=== PATIENT | female | born 1980 | race Two or more races ===

== ENCOUNTER 2017-06-30 13:55 | Emergency (ER) | payer MEDICAID ==
[~2017-06-30] VITALS: Ht 160 cm; Wt 68.0 kg
--- NOTE | 2017-06-30 14:00 | NUR ---
AAOX3, C/O COUGH, BACK PAIN, SORETHROAT AND BILATERAL EAR PAIN X9 DAYS TAKING AUGMENTIN FOR PNEUMONIA X 4 DAYS, NO RELIEF. RR IS EVEN AND UNLABORED WITH NAD NOTED. SKIN IS WARM AND NON DIAPHORETIC. AWAITING MD FOR EVAL.
[2017-06-30] MEDS ORDERED: predniSONE 20 MG TABLET ONE (14:28)
[2017-06-30] MEDS ORDERED: IPRATROPIUM NEB FS 0.5 MG/2.5 ML AMPUL.NEB ONE (14:30)
[2017-06-30] MEDS ORDERED: IPRATROPIUM NEB FS 0.5 MG/2.5 ML AMPUL.NEB NEB ONE (14:30)
[2017-06-30] MEDS ORDERED: ALBUTEROL FS 2.5 MG/3 ML VIAL.NEB NEB ONE (14:30)
[2017-06-30] MEDS ORDERED: predniSONE 20 MG TABLET PO ONE (14:30)
[2017-06-30] MEDS ORDERED: ALBUTEROL FS 2.5 MG/3 ML VIAL.NEB ONE (14:30)
--- NOTE | 2017-06-30 14:31 | NUR ---
BREATHING TREATMENT AT
[2017-06-30 15:00] VITALS: BP 115/70
== END 2017-06-30 15:00 | disposition home or self-care (01) ==
LOC: ER 13:58
DX: J45.909 Unspecified asthma, uncomplicated (principal); B34.9 Viral infection, unspecified
CPT/HCPCS: 71045; 84703; 94640; 99285; A4606; J7512; Z7610